=== PATIENT | male | born 1960 | race Caucasian/White ===

== ENCOUNTER 2018-01-27 09:20 | Emergency (ER) | payer OTHER ==
--- NOTE | 2018-01-27 09:31 | ER Report ---
History and Physical Time Seen By MD: 09:31 Hx. of Stated Complaint: pt reports pain in r side chest starting last night midnight, today in center of chest, pain with deep breathing HPI/ROS CHIEF COMPLAINT: Right-sided chest pain, shortness breath, pleuritic chest pain HISTORY OF PRESENT ILLNESS: Patient is a 57-year-old male here with complaints of right-sided chest pain without radiation, shortness of breath, pain with deep inspiration which started at approximately midnight and woke the patient from sleep. Patient denies taking other medications are related to try to take ibuprofen without relief of symptoms. Patient does admit to actively smoking history however denies hyperlipidemia. Patient did not take aspirin prior to arrival. Denies prior history of clotting, clotting disorders in the family, lower extremity edema, fevers, coughs. REVIEW OF SYSTEMS: Constitutional: No fever, no chills. Eyes: No discharge. ENT: No sore throat. Cardiovascular:+ right sided chest pain, no palpitations. Respiratory: No cough, + shortness of breath worse with inspiration Gastrointestinal: No abdominal pain, no vomiting. Genitourinary: No hematuria. Musculoskeletal: No back pain. Skin: No rashes. Neurological: No headache. Allergies: Coded Allergies: No Known Drug Allergies (Unverified , 01/27/18) Home Meds No Active Prescriptions or Reported Meds Constitutional Vital Sign - Last 24 Hours 01/27/18 01/27/18 01/27/18 01/27/18 09:20 09:23 09:23 09:30 Temp 97.9 Pulse ??? 97 Resp 18 B/P (MAP) 188/110 188/110 (136) 186/116 (139) Pulse Ox 95 01/27/18 01/27/18 01/27/18 01/27/18 09:35 09:50 10:00 10:05 Pulse 94 ??? 92 Resp 8 7 17 B/P (MAP) 154/97 (116) 135/85 (102) 152/102 (119) Pulse Ox 97 94 95 01/27/18 01/27/18 01/27/18 01/27/18 10:10 10:15 10:20 10:25 Pulse 86 Resp 6 B/P (MAP) 149/101 (117) 145/97 (113) 152/96 (114) 145/85 (105) Pulse Ox 96 01/27/18 18 18 01/27/18 10:30 10:35 10:40 10:45 Pulse 85 85 Resp 17 16 B/P (MAP) 144/89 (107) 146/91 (109) 152/95 (114) Pulse Ox 95 18 18 18 01/27/18 10:45 10:45 10:50 10:54 Pulse 88 95 Resp 15 14 B/P (MAP) 144/87 (106) 137/97 (110) Pulse Ox 95 100 O2 Delivery Room Air 01/27/18 01/27/18 01/27/18 01/27/18 10:55 11:00 11:05 11:10 Pulse 93 Resp 21 B/P (MAP) 149/97 (114) 149/90 (109) 154/100 (118) 159/90 (113) Pulse Ox 95 01/27/18 01/27/18 01/27/18 01/27/18 11:15 11:20 11:21 11:25 Pulse ??? B/P (MAP) 155/98 (117) 162/103 (122) 154/101 (118) 18 18 18 01/27/18 11:30 11:35 11:40 11:45 Pulse 91 Resp 8 B/P (MAP) 152/99 (116) 156/98 (117) 154/102 (119) 153/103 (120) Pulse Ox 94 01/27/18 01/27/18 01/27/18 01/27/18 11:50 11:55 12:00 12:05 Pulse 90 91 Resp 0 19 B/P (MAP) 161/101 (121) 162/95 (117) 159/100 (119) 165/105 (125) Pulse Ox 95 93 Intake and Output 01/27/18 01/27/18 01/28/18 14:59 22:59 06:59 Intake Total 500 ml Balance 500 ml Physical Exam General Appearance: The patient is alert, has no immediate need for airway protection and no signs of toxicity. + Mild distress due to discomfort Eyes: Pupils equal and round no pallor or injection. ENT, Mouth: Mucous membranes are moist. Respiratory: There are no retractions, lungs are clear to auscultation. Cardiovascular: + Tachycardia Gastrointestinal: Abdomen is soft and non tender, no masses, bowel sounds normal. Neurological: No focal deficits Skin: Warm and dry, no rashes. Musculoskeletal: Neck is supple non tender. Extremities are nontender, nonswollen and have full range of motion. DIFFERENTIAL DIAGNOSIS: After history and physical exam differential diagnosis was considered for chest pain including but not limited to myocardial ischemia, pericarditis pulmonary embolus, chest wall pain, pleural inflammation and pulmonary infectious causes. Medical Decision Making Data Points Result Diagram: 01/27/18 0935 01/27/18 0935 Laboratory Hematology Test 01/27/18 09:35 01/27/18 11:28 Red Blood Count 4.71 M/uL (4.00-5.60) Mean Corpuscular Volume 93.3 fL (80.0-96.0) Mean Corpuscular Hemoglobin 32.1 pg (26.0-33.0) Mean Corpuscular Hemoglobin Concent 34.4 g/dL (32.0-36.0) Red Cell Distribution Width 13.8 % (11.5-14.5) Mean Platelet Volume 7.4 fL (7.2-11.1) Neutrophils (%) (Auto) 76.5 % (39.4-72.5) Lymphocytes (%) (Auto) 16.0 % (17.6-49.6) Monocytes (%) (Auto) 6.5 % (4.1-12.4) Eosinophils (%) (Auto) 0.3 % (0.4-6.7) Basophils (%) (Auto) 0.7 % (0.3-1.4) Nucleated RBC Relative Count (auto) 0.0 /100WBC Neutrophils # (Auto) 8.7 K/uL (2.0-7.4) Lymphocytes # (Auto) 1.8 K/uL (1.3-3.6) Monocytes # (Auto) 0.7 K/uL (0.3-1.0) Eosinophils # (Auto) 0.0 K/uL (0.0-0.5) Basophils # (Auto) 0.1 K/uL (0.0-0.1) Nucleated RBC Absolute Count (auto) 0.00 K/uL Peripheral Blood Smear No Y/N Prothrombin Time 13.0 seconds (12.0-14.4) Prothromb Time International Ratio 0.98 Activated Partial Thromboplast Time 25 seconds (23-35) D-Dimer Quantitative (PE/DVT) 0.30 ug/ml (0-0.50) Sodium Level 143 mmol/L (137-145) Potassium Level 3.6 mmol/L (3.5-5.0) Chloride Level 106 mmol/L (98-107) Carbon Dioxide Level 25 mmol/L (22-30) Blood Urea Nitrogen 15 mg/dl (9-21) Creatinine 1.10 mg/dl (0.66-1.25) Glomerular Filtration Rate Calc > 60.0 Random Glucose 115 mg/dl (75-110) Calcium Level 8.9 mg/dl (8.4-10.2) Total Bilirubin 0.9 mg/dl (0.2-1.3) Aspartate Amino Transf (AST/SGOT) 24 U/L (0-35) Alanine Aminotransferase (ALT/SGPT) 27 U/L (0-56) Alkaline Phosphatase 60 U/L (0-126) B-Type Natriuretic Peptide 20 pg/ml (0-100) Total Protein 7.2 g/dl (6.3-8.2) Albumin 3.9 g/dl (3.5-5.0) Troponin I < 0.012 ng/ml Chemistry Test 01/27/18 09:35 01/27/18 11:28 White Blood Count 11.3 k/uL (4.5-11.0) Red Blood Count 4.71 M/uL (4.00-5.60) Hemoglobin 15.1 g/dL (14.0-18.0) Hematocrit 43.9 % (42.0-52.0) Mean Corpuscular Volume 93.3 fL (80.0-96.0) Mean Corpuscular Hemoglobin 32.1 pg (26.0-33.0) Mean Corpuscular Hemoglobin Concent 34.4 g/dL (32.0-36.0) Red Cell Distribution Width 13.8 % (11.5-14.5) Platelet Count 250 K/uL (150-450) Mean Platelet Volume 7.4 fL (7.2-11.1) Neutrophils (%) (Auto) 76.5 % (39.4-72.5) Lymphocytes (%) (Auto) 16.0 % (17.6-49.6) Monocytes (%) (Auto) 6.5 % (4.1-12.4) Eosinophils (%) (Auto) 0.3 % (0.4-6.7) Basophils (%) (Auto) 0.7 % (0.3-1.4) Nucleated RBC Relative Count (auto) 0.0 /100WBC Neutrophils # (Auto) 8.7 K/uL (2.0-7.4) Lymphocytes # (Auto) 1.8 K/uL (1.3-3.6) Monocytes # (Auto) 0.7 K/uL (0.3-1.0) Eosinophils # (Auto) 0.0 K/uL (0.0-0.5) Basophils # (Auto) 0.1 K/uL (0.0-0.1) Nucleated RBC Absolute Count (auto) 0.00 K/uL Peripheral Blood Smear No Y/N Prothrombin Time 13.0 seconds (12.0-14.4) Prothromb Time International Ratio 0.98 Activated Partial Thromboplast Time 25 seconds (23-35) D-Dimer Quantitative (PE/DVT) 0.30 ug/ml (0-0.50) Glomerular Filtration Rate Calc > 60.0 Calcium Level 8.9 mg/dl (8.4-10.2) Total Bilirubin 0.9 mg/dl (0.2-1.3) Aspartate Amino Transf (AST/SGOT) 24 U/L (0-35) Alanine Aminotransferase (ALT/SGPT) 27 U/L (0-56) Alkaline Phosphatase 60 U/L (0-126) B-Type Natriuretic Peptide 20 pg/ml (0-100) Total Protein 7.2 g/dl (6.3-8.2) Albumin 3.9 g/dl (3.5-5.0) Troponin I < 0.012 ng/ml Coagulation Test 01/27/18 09:35 Prothrombin Time 13.0 seconds Prothromb Time International Ratio 0.98 Activated Partial Thromboplast Time 25 seconds D-Dimer Quantitative (PE/DVT) 0.30 ug/ml EKG/Imaging Imaging HISTORY: Chest Pain Comparison studies: None FINDINGS: The lungs are clear. No pleural effusion. The cardiac silhouette is unremarkable. Plate and screw fixation traverses the left clavicle. IMPRESSION: 1. No acute cardiopulmonary process. ED Course/Re-evaluation ED Course Patient is a 57-year-old male here complaining of chest pain, shortness of breath. Chest pain was located primarily in the right chest and does not radiate and the patient reports difficulty taking deep breaths. Pain started approximately midnight last night and has been persistent. Patient was given aspirin and fluids. D-dimer was negative making pulmonary embolism or DVT much less likely. A 2 set cardiac enzyme was completed and were both negative, the last of which was at approximately 11:30. Chest x-ray showed no acute intrathoracic findings. I updated the patient regarding lab and imaging findings and he voiced understanding. I advised the patient to follow up with cardiology with consideration for provocative testing. Patient was hemodynamically stable at time of discharge. Decision to Disposition Date: Jan 27, 2018 Decision to Disposition Time: 12:36 Depart Departure Latest Vital Signs Vital Signs Date Time Temp Pulse Resp B/P (MAP) Pulse Ox O2 Delivery O2 Flow Rate FiO2 01/27/18 12:05 91 19 165/105 (125) 93 01/27/18 10:45 Room Air 01/27/18 09:23 97.9 Impression: Primary Impression: Chest pain Additional Impression: Shortness of breath Condition: Improved Disposition: HOME OR SELF-CARE New Scripts No Active Prescriptions or Reported Meds Patient Instructions: Chest Pain (ED) Additional Instructions: Follow up with a carpenter foreman next week for possible provocative testing. Please return promptly if you develop worsening symptoms, chest pain, shortness , fevers, chills. Problem Qualifiers DENNY TORO DO Jan 27, 2018 09:31
[2018-01-27] MEDS ORDERED: NS(*) 0.9% 1000 ML BAG 1,000 ML IV ONE (09:36)
[2018-01-27] MEDS ORDERED: ASPIRIN 81 MG CHEW PO ONE (09:40)
[2018-01-27] MEDS ORDERED: NITROGLYCERIN 0.4 MG SUBL SL SCH (09:40)
[2018-01-27 09:46] LABS: PLATELET COUNT, AUTOMATED 250 K/uL (150-450)
[2018-01-27 09:56] LABS: INR 0.98
--- NOTE | 2018-01-27 10:04 | EKG ---
FAC[place] [facility] [place]IENT NAME: CB TRIPLETT : [id number] MR: [id number] V: [id number] EXAM DATE: ORDERING PHYSICIAN: DENNY TORO TECHNOLOGIST: ADRIANE Zee Reason : CP Blood Pressure : / mmHG Vent. Rate : 094 BPM Atrial Rate : 094 BPM P-R Int : 176 ms QRS Dur : 106 ms QT Int : 378 ms P-R-T Axes : 067 053 039 degrees QTc Int : 472 ms Normal sinus rhythm Minimal voltage criteria for LVH, may be normal variant No ST-T abnormalities No previous ECGs available Confirmed by MIGUEL ÁNGEL ARRIAGA ([id number]) on 01/27/2018 3:58:16 PM Referred By: MUNA Confirmed By:MIGUEL ÁNGEL ARRIAGA
--- NOTE | 2018-01-27 10:28 | RADIOLOGY IMAGING REPORT ---
FACILITY: [facility] - [place] PATIENT NAME: Chaim Mercer : 1960 MR: [id number] V: [id number] EXAM DATE: ORDERING PHYSICIAN: DENNY TORO TECHNOLOGIST: Location: [facility] - [place], [place] Patient: Chaim Mercer : 1960 Visit/Account:[id number] Date of Sevice: 01/27/2018 Technique: CHEST PA AND LAT HISTORY: Chest Pain Comparison studies: None FINDINGS: The lungs are clear. No pleural effusion. The cardiac silhouette is unremarkable. Plate and screw fixation traverses the left clavicle. IMPRESSION: 1. No acute cardiopulmonary process. Report Dictated By: Benjamín Barnett DO at 01/27/2018 10:23 AM Report E-Signed By: Benjamín Barnett DO at 01/27/2018 10:24 AM [id number]
[2018-01-27] MEDS ORDERED: ALBUTEROL/IPRATROPIUM 3 ML NEB NEB ONE (10:40)
[2018-01-27 12:05] VITALS: BP 165/105
== END 2018-01-27 12:51 | disposition home or self-care (01) ==
LOC: ER 09:43
DX: R07.9 Chest pain, unspecified (principal); R06.02 Shortness of breath; F17.210 Nicotine dependence, cigarettes, uncomplicated
CPT/HCPCS: 36415; 71046; 83880; 84484; 85025; 85379; 85610; 85730; 93005; 94640; 96360; 96361; 99284; J7030; J7620; 82040; 82247; 82310; 82374; 82435; 82565; 82947; 84075; 84132; 84155; 84295; 84450; 84460; 84520